=== PATIENT | male | born 1995 | race Two or more races ===

== ENCOUNTER 2023-02-05 14:13 | Outpatient (CLI) | payer OTHER, SELFPAY | END 2023-02-05 14:14 | disposition home or self-care (01) | PROVIDERS: Visit Provider Internal Medicine | DX: R07.9 Chest pain, unspecified (principal) | CPT/HCPCS: 80048; 85379 ==

== ENCOUNTER 2023-08-04 09:51 | Outpatient (CLI) | payer OTHER, SELFPAY | END 2023-08-04 09:52 | disposition home or self-care (01) | PROVIDERS: PCP Internal Medicine; Visit Provider Internal Medicine | DX: Z00.00 Encounter for general adult medical examination without abnormal findings (principal); R00.2 Palpitations | CPT/HCPCS: 80053; 80061 ==